=== PATIENT | male | born 1995 | race Caucasian/White ===

== ENCOUNTER 2019-08-24 02:00 | Emergency (ER) | payer BC, OTHER ==
[2019-08-24] MEDS ORDERED: Take Home: Doxycycline 100 MG Tab, 4 Tab Pack PO ONE (02:08)
[2019-08-24] MEDS ORDERED: Take Home: Codeine/Promethazine 10-6.25 MG/5 ML Syrup 5 ML, 2 Cup Pack PO ONE (02:08)
--- NOTE | 2019-08-24 05:24 | EDM.PDOC ---
ED HPI GENERAL MEDICAL PROBLEM - General Chief Complaint: Respiratory Problem Stated Complaint: Cough Time Seen by Provider: 08/24/19 02:05 Source of Information: Reports: Patient History Limitations: Reports: No Limitations - History of Present Illness INITIAL COMMENTS - FREE TEXT/NARRATIVE: Pt. presents to ER with complaints of productive cough, chest congestion, fever for the past several days. He states that he has not had any sore throat. No nausea, vomiting, or diarrhea. No rashes. Pt. states that he has been feeling poorly for at least 5 days. He missed work today. He states that he has not had his flu shot. He denies any body aches, myalgias, or arthralgias. Onset: Today Onset Date: 08/24/19 Location: Reports: Chest, Generalized Associated Symptoms: Reports: Cough, cough w sputum, Fever/Chills. Denies: Confusion, Chest Pain, Headaches, Nausea/Vomiting, Rash "Lungs" Pain Score (Numeric/FACES): 6 - Related Data Allergies Allergy/AdvReac Type Severity Reaction Status Date / Time No Known Allergies Allergy Verified 08/24/19 02:06 Home Meds: Home Meds Venlafaxine [Effexor] 150 mg PO DAILY 08/24/19 [History] Past Medical History Psychiatric History: Reports: Anxiety, Depression Social & Family History - Tobacco Use Smoking Status *Q: Former Smoker Used Tobacco, but Quit: Yes Month/Year Tobacco Last Used: Two years ago - Recreational Drug Use Recreational Drug Use: No ED ROS GENERAL - Review of Systems Review Of Systems: See Below Constitutional: Reports: Fever, Chills, Fatigue HEENT: Reports: No Symptoms Respiratory: Reports: Cough, Sputum Cardiovascular: Reports: No Symptoms Endocrine: Reports: No Symptoms GI/Abdominal: Reports: No Symptoms : Reports: No Symptoms Musculoskeletal: Reports: No Symptoms Skin: Reports: No Symptoms Neurological: Reports: No Symptoms Psychiatric: Reports: No Symptoms Hematologic/Lymphatic: Reports: No Symptoms Immunologic: Reports: No Symptoms ED EXAM, GENERAL - Physical Exam Exam: See Below Exam Limited By: No Limitations General Appearance: Alert, WD/WN, No Apparent Distress Ears: Normal External Exam, Normal Canal, Hearing Grossly Normal, Normal TMs Ear Exam: Bilateral Ear: Auricle Normal, Canal Normal, TM normal Nose: Normal Inspection, Normal Mucosa Throat/Mouth: Normal Inspection, Normal Lips, Normal Teeth, Normal Gums, Normal Oropharynx, Normal Voice, No Airway Compromise Head: Atraumatic, Normocephalic Neck: Normal Inspection, Supple, Non-Tender, Full Range of Motion Respiratory/Chest: No Respiratory Distress, Lungs Clear, Crackles, Rhonchi Cardiovascular: Normal Peripheral Pulses, Regular Rate, Rhythm, No Edema, No Gallop, No JVD, No Murmur, No Rub GI/Abdominal: Soft, Non-Tender, No Distention, No Mass (Male) Exam: Deferred Rectal (Males) Exam: Deferred Back Exam: Normal Inspection, Full Range of Motion Extremities: Normal Inspection, Normal Range of Motion, Non-Tender, No Pedal Edema, Normal Capillary Refill Neurological: Alert, Oriented, CN II-XII Intact, Normal Cognition, Normal Gait, Normal Reflexes, No Motor/Sensory Deficits Psychiatric: Normal Affect, Normal Mood Skin Exam: Warm, Dry, Intact, Pallor Lymphatic: No Adenopathy Course - Vital Signs Last Recorded V/S: Last Vital Signs Temp 36.9 C 08/24/19 02:10 Pulse 111 H 08/24/19 02:10 Resp 16 08/24/19 02:10 BP 142/89 H 08/24/19 02:10 Pulse Ox 97 08/24/19 02:10 - Orders/Labs/Meds Meds: Medications Discontinued Medications Generic Name Dose Route Start Last Admin Trade Name Hussain PRN Reason Stop Dose Admin Doxycycline Monohydrate 1 packet 08/24/19 02:08 08/24/19 02:15 Take Home: Doxycycline 100 Mg, 4 Tab Pack PO 08/24/19 02:09 1 packet ONETIME ONE Administration Promethazine HCl/Codeine 1 packet 08/24/19 02:08 08/24/19 02:15 Take Home: Codeine/Prometh 10-6.25 Mg, 2 Pack PO 08/24/19 02:09 1 packet ONETIME ONE Administration Departure - Departure Time of Disposition: 02:20 Disposition: Home, Self-Care 01 Condition: Good Clinical Impression: Bronchitis - Discharge Information Instructions: Doxycycline tablets or capsules, Codeine; Promethazine oral solution, Acute Bronchitis, Adult, Probiotics Referrals: Joshua Ramon MD [Primary Care Provider] - Forms: ED Department Discharge Additional Instructions: Doxycycline 100mg 1 twice daily for 10 days Phenergan with codeine 5 ml every 4-6 hours for cough Drink plenty of fluids tylenol and ibuprofen for fever/discomfort. Drink plenty of fluids Recheck in clinic in 10-14 days Sepsis Event Note - Evaluation Sepsis Screening Result: Possible Sepsis Risk - Focused Exam Vital Signs: Vital Signs Temp Pulse Resp BP Pulse Ox 08/24/19 02:10 36.9 C 111 H 16 142/89 H 97 Date Exam was Performed: 08/24/19 Time Exam was Performed: 05:19 - Assessment/Plan Plan: Doxycycline 100mg 1 twice daily for 10 days Phenergan with codeine 5 ml every 4-6 hours for cough Drink plenty of fluids tylenol and ibuprofen for fever/discomfort. Drink plenty of fluids Recheck in clinic in 10-14 days
== END 2019-08-24 02:20 | disposition home or self-care (01) ==
LOC: VM.ED 02:00
DX: J40 Bronchitis, not specified as acute or chronic (principal); Z87.891 Personal history of nicotine dependence; Z79.899 Other long term (current) drug therapy
CPT/HCPCS: 99283; A9270

== ENCOUNTER 2020-01-17 23:46 | Emergency (ER) | payer BC, OTHER ==
[2020-01-18] MEDS ORDERED: diphenhydrAMINE 50 MG/ML SDV IVPUSH ONE (00:11)
[2020-01-18] MEDS ORDERED: Morphine 10 MG/ML SDV IVPUSH ONE (00:12)
[2020-01-18] MEDS ORDERED: Lactated Ringers 1,000 ML IV ONE (00:12)
[2020-01-18] MEDS ORDERED: Polyethylene Glycol 3350 Powder 17 GM Packet PO ONE (00:13)
[2020-01-18] MEDS ORDERED: Ondansetron 4 MG/2 ML SDV IV ONE (00:13)
--- NOTE | 2020-01-18 00:43 | EDM.PDOC ---
ED HPI GENERAL MEDICAL PROBLEM - General Chief Complaint: Gastrointestinal Problem Stated Complaint: rectal bleeding Time Seen by Provider: 01/18/20 00:12 Source of Information: Reports: Patient History Limitations: Reports: No Limitations - History of Present Illness INITIAL COMMENTS - FREE TEXT/NARRATIVE: Patient comes emergency department today from home by ambulance with concerns of rectal bleeding. This patient on 01/12/2020 had a internal and external hemorrhoidectomy completed at [facility] in [place]. He was sent home with oral Colace and hydrocodone. He has not had a bowel movement since that time. He is currently out of his pain medication at home. He has been trying to use small amounts of laxatives yesterday and today to help with a bowel movement as he feels like he needs to go. He was sitting on the toilet tonight he was having some cramping and pressure attempting not to have a bowel movement. He noticed that he was having some dark sheree blood bleeding from his rectum. He has had increased pain in his rectum as well as his abdomen. Is had no nausea or vomiting. No fever no chills. No chest pain no shortness of breath or difficulty breathing. No weakness dizziness lightheadedness. He became quite concerned due to the pain in the rectal bleeding. He also wondered if 1 of his stitches did not come out as well. Therefore he contacted the ambulance and was brought to the emergency department. Upon arrival he is quite uncomfortable quite a bit of pain in his rectum and as well as his abdomen which is more peristaltic in nature. He is actively nauseated without vomiting. Rectal Pain Score (Numeric/FACES): 7 - Related Data Allergies Allergy/AdvReac Type Severity Reaction Status Date / Time No Known Allergies Allergy Verified 01/17/20 23:59 Home Meds: Home Meds Venlafaxine [Effexor] 150 mg PO DAILY 08/24/19 [History] Docusate Sodium [Dulcolax Stool Softener] 100 mg PO BID 01/17/20 [History] Hydrocodone/Acetaminophen [Hydrocodone-Acetamin 5-325 mg] 1 each PO Q4H PRN 01/17/20 [History] Past Medical History Gastrointestinal History: Reports: Hemorrhoids Psychiatric History: Reports: Anxiety, Depression Social & Family History - Tobacco Use Smoking Status *Q: Never Smoker ED ROS GENERAL - Review of Systems Review Of Systems: Comprehensive ROS is negative, except as noted in HPI. ED EXAM, GI/ABD - Physical Exam Exam: See Below Exam Limited By: No Limitations General Appearance: Alert, WD/WN, No Apparent Distress Respiratory/Chest: No Respiratory Distress, Lungs Clear Cardiovascular: Normal Peripheral Pulses, Regular Rate, Rhythm GI/Abdominal Exam: Normal Bowel Sounds, Soft Rectal (Males) Exam: Tenderness (There is some dried blood on the gluteal folds and small amount of clots at the anus. There is a small amount of bruising at the 9 oclock position just lateral to the anal os. THere is external sutures that are well approximated and no active bleeding. DIgital exam is difficult due to pain and discomfort with a small amount of dark red blood in the rectal vault. Initially unable to identify any stool due to discomfort. No sheree blood. ) Extremities: Normal Inspection, Normal Range of Motion Neurological: Alert, Oriented, Normal Cognition, No Motor/Sensory Deficits Psychiatric: Anxious Skin Exam: Warm, Dry, Intact, Normal Color Course - Vital Signs Last Recorded V/S: Last Vital Signs Temp 99.9 F 01/17/20 23:46 Pulse 111 H 01/17/20 23:46 Resp 18 01/17/20 23:46 BP 147/83 H 01/17/20 23:46 Pulse Ox 99 01/17/20 23:46 - Orders/Labs/Meds Orders: Active Orders 24 hr Category Date Time Status BASIC METABOLIC PANEL,BMP [CHEM] Stat Lab 01/18/20 00:11 Ordered CBC WITH AUTO DIFF [HEME] Stat Lab 01/18/20 00:11 Ordered Lactated Ringers [Ringers, Lactated] 1,000 ml Med 01/18/20 00:12 Ordered IV ONETIME Medication Orders Lactated Ringer's (Ringers, Lactated) 1,000 mls @ 999 mls/hr IV ONETIME ONE Stop: 01/18/20 01:12 Last Admin: 01/18/20 00:24 Dose: 999 mls/hr Documented by: CHRIS Meds: Medications Generic Name Dose Route Start Last Admin Trade Name Freq PRN Reason Stop Dose Admin Lactated Ringer's 1,000 mls @ 999 mls/hr 01/18/20 00:12 01/18/20 00:24 Ringers, Lactated IV 01/18/20 01:12 999 mls/hr ONETIME ONE Administration Discontinued Medications Generic Name Dose Route Start Last Admin Trade Name Hussain PRN Reason Stop Dose Admin Diphenhydramine HCl 25 mg 01/18/20 00:11 01/18/20 00:23 Benadryl IVPUSH 01/18/20 00:12 25 mg ONETIME ONE Administration Morphine Sulfate 2 mg 01/18/20 00:12 01/18/20 00:23 Morphine IVPUSH 01/18/20 00:13 2 mg ONETIME ONE Administration Ondansetron HCl 4 mg 01/18/20 00:13 01/18/20 00:22 Zofran IV 01/18/20 00:14 4 mg ONETIME ONE Administration Polyethylene Glycol 34 gm 01/18/20 00:13 01/18/20 00:32 Miralax PO 01/18/20 00:14 34 gm ONETIME ONE Administration - Re-Assessments/Exams Free Text/Narrative Re-Assessment/Exam: 01/18/20 01:34 The patient initially was given Benadryl morphine Zofran and a liter of LR. When he initially arrived he was quite uncomfortable. Shortly after he did have a bowel movement that was soft and formed that I would say is moderate size. He had much improvement of pain not only in his abdomen but also his rectum. He kind of has a dull ache in his rectum now which is much improved in his arrival. There was some topical lidocaine placed on the anus as well. She feels much better and we will discharge him home. There is no active bleeding following the bowel movement. I will add MiraLAX to his bowel regimen as well and he can continue the Colace. I would like him to contact his surgeon's office tomorrow for update. He is comfortable with this plan and his questions are answered. Departure - Departure Time of Disposition: 01:27 Disposition: Home, Self-Care 01 Clinical Impression: Status post hemorrhoidectomy, Rectal bleeding - Discharge Information Instructions: Rectal Bleeding, [id number] Referrals: PCP,Unobtain [Primary Care Provider] - Forms: ED Department Discharge Additional Instructions: Continue with the previous therapies. Add Miralax, 1 capful daily with a large glass of water. Make sure and increase fluid intake. Should be urinating every 2 hours. Again try not to bear down when having a bowel movement as previous. Return to the ED if new or worsening symptoms. Contact your surgeons office tomorrow by phone for update of changes. Sepsis Event Note (ED) - Evaluation Sepsis Screening Result: No Definite Risk - Focused Exam Vital Signs: Vital Signs Temp Pulse Resp BP Pulse Ox 01/17/20 23:46 99.9 F 111 H 18 147/83 H 99 - My Orders Last 24 Hours: My Active Orders 01/18/20 00:11 BASIC METABOLIC PANEL,BMP [CHEM] Stat CBC WITH AUTO DIFF [HEME] Stat 01/18/20 00:12 Lactated Ringers [Ringers, Lactated] 1,000 ml IV ONETIME - Assessment/Plan Last 24 Hours: My Active Orders 01/18/20 00:11 BASIC METABOLIC PANEL,BMP [CHEM] Stat CBC WITH AUTO DIFF [HEME] Stat 01/18/20 00:12 Lactated Ringers [Ringers, Lactated] 1,000 ml IV ONETIME Assessment:: S/P Hemorrhoidectomy internal and external Plan: Continue with the previous therapies. Add Miralax, 1 capful daily with a large glass of water. Make sure and increase fluid intake. Should be urinating every 2 hours. Again try not to bear down when having a bowel movement as previous. Return to the ED if new or worsening symptoms. Contact your surgeons office tomorrow by phone for update of changes.
[2020-01-18] MEDS ORDERED: Lidocaine 2% Jelly 5 ML Tube MUCMEM ONE (00:56)
[2020-01-18 00:58] LABS: CHLORIDE,CL 103 mmol/L (98-107); SODIUM,NA 139 mmol/L (136-145)
[2020-01-18] MEDS ORDERED: Morphine 4 MG/ML Syringe IVPUSH ONE (00:59)
[2020-01-18 01:00] LABS: ANION GAP 8.5 mmol/L (10-20)
[2020-01-18] MEDS ORDERED: Lidocaine 2% Jelly 5 ML Tube ONE (01:04)
== END 2020-01-18 01:35 | disposition home or self-care (01) ==
LOC: VM.ED 23:46
DX: K62.5 Hemorrhage of anus and rectum (principal); F41.9 Anxiety disorder, unspecified; F32.9 Major depressive disorder, single episode, unspecified; Z90.49 Acquired absence of other specified parts of digestive tract; Z79.899 Other long term (current) drug therapy
CPT/HCPCS: 36415; 80048; 85025; 96374; 96375; 96376; 99284-25; A9270-GY; J1200; J2270; J2405; J7120

== ENCOUNTER 2021-06-01 15:12 | Emergency (ER) | payer BC ==
[2021-06-01] MEDS ORDERED: Ondansetron 4 MG/2 ML SDV IVPUSH ONE (15:42)
[2021-06-01] MEDS ORDERED: fentaNYL 100 MCG/2 ML SDV IVPUSH ONE (15:42)
[2021-06-01] MEDS ORDERED: Lactated Ringers 1,000 ML IV ONE (15:42)
[2021-06-01 15:51] LABS: CHLORIDE,CL 103 mmol/L (98-107); SODIUM,NA 141 mmol/L (136-145)
--- NOTE | 2021-06-01 15:52 | EDM.PDOC ---
ED HPI GENERAL MEDICAL PROBLEM - General Chief Complaint: Abdominal Pain Stated Complaint: STOMACH PAIN Time Seen by Provider: 06/01/21 15:35 Source of Information: Reports: Patient - History of Present Illness INITIAL COMMENTS - FREE TEXT/NARRATIVE: Andrea is a 25 y/o male who presents to the ER with RLQ abdominal pain that he reports started 2-3 days ago, He was switched from Venlafaxine to Fluoxetine on Friday by his PCP and he thought the GI sx were from that, but Friday it got worse. He has been nauseated and vomited over the last 2 days. Has also has some diarrhea. Low grade fever present too. He was at the [facility], but was sent here to be seen. - Related Data Allergies Allergy/AdvReac Type Severity Reaction Status Date / Time No Known Allergies Allergy Verified 01/17/20 23:59 Home Meds: Home Meds FLUoxetine HCl [Fluoxetine HCl] 20 mg PO DAILY 06/01/21 [History] Past Medical History Gastrointestinal History: Reports: Hemorrhoids Psychiatric History: Reports: Anxiety, Depression Review of Systems - Review of Systems Review Of Systems: See Below Constitutional: Reports: Fever Eyes: Reports: No Symptoms Ears: Reports: No Symptoms Nose: Reports: No Symptoms Mouth/Throat: Reports: No Symptoms Respiratory: Reports: No Symptoms Cardiovascular: Reports: No Symptoms GI/Abdominal: Reports: Abdominal Pain, Decreased Appetite, Diarrhea, Nausea, Vomiting Genitourinary: Reports: No Symptoms Musculoskeletal: Reports: No Symptoms Skin: Reports: No Symptoms Neurological: Reports: No Symptoms Psychiatric: Reports: No Symptoms ED EXAM, GENERAL - Physical Exam Exam: See Below General Appearance: Alert, WD/WN, No Apparent Distress (Adult male, lyig quietly on ER cart.) Ears: Normal External Exam, Normal Canal, Hearing Grossly Normal, Normal TMs Nose: Normal Inspection, Normal Mucosa Throat/Mouth: Normal Inspection, Normal Lips, Normal Voice Head: Atraumatic, Normocephalic Neck: Supple Respiratory/Chest: No Respiratory Distress, Lungs Clear Cardiovascular: Normal Peripheral Pulses, Regular Rate, Rhythm, No Murmur GI/Abdominal: Normal Bowel Sounds, Soft, No Distention, Rebound (RLQ/RUQ), Tender (Male) Exam: Deferred Rectal (Males) Exam: Deferred Back Exam: Normal Inspection Extremities: No Pedal Edema Neurological: Alert, Oriented, CN II-XII Intact, No Motor/Sensory Deficits Psychiatric: Normal Mood Skin Exam: Warm, Dry, Intact, Normal Color Course - Vital Signs Text/Narrative:: 1535 The patient was seen by the [employer]ING ADJUSTER. Labs ordered. He was given a liter of LR, Fentanyl 100mcg IVP, and Zofran 4mg IVP. 1620 Labs reviewed. CBC neg, CMP BUN=19, COVID=neg, UA=blood trace intact. Will order CT Abd/Pelvis WO to rule out renal calculi as cause. Doubt appendicitis at this time. 1715 CT reviewed, negative. Results discussed with the patient and his family. Still not feeling all that well. Still having some pain and nausea. Reglan 10mg IVP ordered. 1800 Will send him home to rest. Ondanestron sent with pt from ER. Differential favors viral illness. Written instructions were given and he left the ER in stable condition with family. Last Recorded V/S: Last Vital Signs Temp 37.7 C 06/01/21 15:34 Pulse 84 06/01/21 15:34 Resp 17 06/01/21 15:34 BP 164/91 H 06/01/21 15:34 Pulse Ox 99 06/01/21 15:34 - Orders/Labs/Meds Orders: Active Orders 24 hr Category Date Time Status Nothing per Oral Now Diet [DIET] Diet 06/01/21 Dinner Ordered Labs: Laboratory Tests 06/01/21 06/01/21 06/01/21 Range/Units 15:18 15:18 15:18 WBC 7.9 (4.0-10.0) x10^3/uL RBC 4.92 (4.5-6.0) x10^6/uL Hgb 15.1 (14.0-18.0) g/dL Hct 42.1 (40.0-52.0) % MCV 85.6 (78.0-93.0) fL MCH 30.7 (26.0-32.0) pg MCHC 35.9 (32.0-36.0) g/dL RDW Coeff of Mario 12.4 (10.0-15.0) % Plt Count 224 (130-400) x10^3/uL Immature Gran % (Auto) 0.40 (0.00-0.43) % Neut % (Auto) 53.8 (50.0-80.0) % Lymph % (Auto) 34.1 (25.0-50.0) % Radford % (Auto) 10.5 (2.0-11.0) % Eos % (Auto) 0.9 (0.0-4.0) % Baso % (Auto) 0.3 (0.2-1.2) % Neut # (Auto) 4.3 (1.8-7.7) x10^3/uL Lymph # (Auto) 2.7 (1.0-4.8) x10^3/uL Radford # (Auto) 0.8 (0.0-0.8) x10^3/uL Eos # (Auto) 0.1 (0.0-0.5) x10^3/uL Baso # (Auto) 0.0 (0.0-0.2) x10^3/uL Immature Gran # (Auto) 0.03 (0.00-0.07) x10^3/uL Sodium 141 (136-145) mmol/L Potassium 4.0 (3.5-5.1) mmol/L Chloride 103 (98-107) mmol/L Carbon Dioxide 27 (21-32) mmol/L Anion Gap 15.0 (5-15) mmol/L BUN 19 H (7-18) mg/dL Creatinine 0.9 (0.70-1.30) mg/dL Est Cr Clr Drug Dosing 123.29 mL/min Estimated GFR (MDRD) > 60 Glucose 97 (70-99) mg/dL Calcium 9.2 (8.5-10.1) mg/dL Corrected Calcium 9.0 (8.5-10.1) mg/dL Total Bilirubin 0.7 (0.2-1.0) mg/dL AST 23 (15-37) U/L ALT 40 (16-63) U/L Alkaline Phosphatase 98 (46-116) U/L C-Reactive Protein (<=0.9) mg/dL Total Protein 7.7 (6.4-8.2) g/dL Albumin 4.2 (3.4-5.0) g/dL Globulin 3.5 Albumin/Globulin Ratio 1.20 Amylase 30 (25-115) U/L Urine Color (YELLOW) Urine Appearance (CLEAR) Urine pH (5.0-8.0) Ur Specific Parnell Urine Protein (NEGATIVE) mg/dL Urine Glucose (UA) (NEGATIVE) mg/dL Urine Ketones (NEGATIVE) mg/dL Urine Occult Blood (NEGATIVE) Urine Nitrite (NEGATIVE) Urine Bilirubin (NEGATIVE) Urine Urobilinogen (0.2) EU/dL Ur Leukocyte Esterase (NEGATIVE) Urine RBC (NOT SEEN) /HPF Urine WBC (NOT SEEN) /HPF Ur Squamous Epith Cells (NOT SEEN) /HPF Urine Bacteria (NOT SEEN) /HPF Urine Mucus (NOT SEEN) /LPF SARS CoV-2 RNA Rapid DIVINA Negative (NEGATIVE) 06/01/21 06/01/21 Range/Units 15:18 16:03 WBC (4.0-10.0) x10^3/uL RBC (4.5-6.0) x10^6/uL Hgb (14.0-18.0) g/dL Hct (40.0-52.0) % MCV (78.0-93.0) fL MCH (26.0-32.0) pg MCHC (32.0-36.0) g/dL RDW Coeff of Mario (10.0-15.0) % Plt Count (130-400) x10^3/uL Immature Gran % (Auto) (0.00-0.43) % Neut % (Auto) (50.0-80.0) % Lymph % (Auto) (25.0-50.0) % Radford % (Auto) (2.0-11.0) % Eos % (Auto) (0.0-4.0) % Baso % (Auto) (0.2-1.2) % Neut # (Auto) (1.8-7.7) x10^3/uL Lymph # (Auto) (1.0-4.8) x10^3/uL Radford # (Auto) (0.0-0.8) x10^3/uL Eos # (Auto) (0.0-0.5) x10^3/uL Baso # (Auto) (0.0-0.2) x10^3/uL Immature Gran # (Auto) (0.00-0.07) x10^3/uL Sodium (136-145) mmol/L Potassium (3.5-5.1) mmol/L Chloride (98-107) mmol/L Carbon Dioxide (21-32) mmol/L Anion Gap (5-15) mmol/L BUN (7-18) mg/dL Creatinine (0.70-1.30) mg/dL Est Cr Clr Drug Dosing mL/min Estimated GFR (MDRD) Glucose (70-99) mg/dL Calcium (8.5-10.1) mg/dL Corrected Calcium (8.5-10.1) mg/dL Total Bilirubin (0.2-1.0) mg/dL AST (15-37) U/L ALT (16-63) U/L Alkaline Phosphatase (46-116) U/L C-Reactive Protein 1.4 H (<=0.9) mg/dL Total Protein (6.4-8.2) g/dL Albumin (3.4-5.0) g/dL Globulin Albumin/Globulin Ratio Amylase (25-115) U/L Urine Color Yellow (YELLOW) Urine Appearance Clear (CLEAR) Urine pH 7.0 (5.0-8.0) Ur Specific Parnell 1.025 Urine Protein Negative (NEGATIVE) mg/dL Urine Glucose (UA) Negative (NEGATIVE) mg/dL Urine Ketones Negative (NEGATIVE) mg/dL Urine Occult Blood Trace-intact H (NEGATIVE) Urine Nitrite Negative (NEGATIVE) Urine Bilirubin Negative (NEGATIVE) Urine Urobilinogen 1.0 (0.2) EU/dL Ur Leukocyte Esterase Negative (NEGATIVE) Urine RBC 0-5 (NOT SEEN) /HPF Urine WBC 0-5 (NOT SEEN) /HPF Ur Squamous Epith Cells Not seen (NOT SEEN) /HPF Urine Bacteria Rare (NOT SEEN) /HPF Urine Mucus Few H (NOT SEEN) /LPF SARS CoV-2 RNA Rapid DIVINA (NEGATIVE) Meds: Medications Discontinued Medications Generic Name Dose Route Start Last Admin Trade Name Freq PRN Reason Stop Dose Admin Fentanyl 100 mcg 06/01/21 15:42 06/01/21 16:44 Fentanyl 100 Mcg/2 Ml Sdv IVPUSH 06/01/21 15:43 100 mcg ONETIME ONE Administration Lactated Ringer's 1,000 mls @ 999 mls/hr 06/01/21 15:42 06/01/21 16:00 Ringers, Lactated IV 06/01/21 16:42 999 mls/hr ONETIME ONE Administration Metoclopramide HCl 10 mg 06/01/21 17:32 Metoclopramide 10 Mg/2 Ml Sdv IM 06/01/21 17:33 ONETIME ONE Ondansetron HCl 4 mg 06/01/21 15:42 06/01/21 16:43 Ondansetron 4 Mg/2 Ml Sdv IVPUSH 06/01/21 15:43 4 mg ONETIME ONE Administration Departure - Departure Time of Disposition: 17:55 Disposition: Home, Self-Care 01 Condition: Good Clinical Impression: Abdominal pain Qualifiers: Abdominal location: right lower quadrant Qualified Code(s): R10.31 - Right lower quadrant pain Diarrhea Qualifiers: Diarrhea type: unspecified type Qualified Code(s): R19.7 - Diarrhea, unspecified - Discharge Information Instructions: Diarrhea, Adult, Abdominal Pain, Adult Referrals: Angelica Mclean [employer] [Primary Care Provider] - Forms: ED Department Discharge Additional Instructions: -Ondanestron ODT 4mg oral every 4 hours as needed for nausea #4(ER Rx) -Rest -Diet as tolerated -Over the counter meds as helpful -Monitor for further symptoms and return to the ER for further labs and diagnostics. -If your symptoms are not improving in the next 48 hours, follow up with your PCP for recheck. Sepsis Event Note (ED) - Evaluation Sepsis Screening Result: No Definite Risk - Focused Exam Vital Signs: Vital Signs Temp Pulse Resp BP Pulse Ox 06/01/21 15:34 37.7 C 84 17 164/91 H 99 - Problem List & Annotations (1) Abdominal pain SNOMED Code(s): 71341249 Code(s): R10.9 - UNSPECIFIED ABDOMINAL PAIN Status: Acute Current Visit: Yes Annotation/Comment:: Labs neg, CT neg. Sent home from ER with Ondanestron. Monitor for further sx. Qualifiers: Abdominal location: right lower quadrant Qualified Code(s): R10.31 - Right lower quadrant pain (2) Diarrhea SNOMED Code(s): 45611171 Code(s): R19.7 - DIARRHEA, UNSPECIFIED Status: Acute Current Visit: Yes Annotation/Comment:: Monitor sx and follow up with PCP if sx persist. Qualifiers: Diarrhea type: unspecified type Qualified Code(s): R19.7 - Diarrhea, unspecified - Problem List Review Problem List Initiated/Reviewed/Updated: Yes - My Orders Last 24 Hours: My Active Orders 06/01/21 Dinner Nothing per Oral Now Diet [DIET] - Assessment/Plan Last 24 Hours: My Active Orders 06/01/21 Dinner Nothing per Oral Now Diet [DIET] Plan: As above
--- NOTE | 2021-06-01 17:10 | CT ---
[id number] CT/CT Abdomen Pelvis WO IV EXAM: CT Abdomen Pelvis WO IV CLINICAL DATA: RIGHT LOWER QUADRANT/RIGHT UPPER QUADRANT ABDOMEN PAIN COMPARISON STUDY: None. FINDINGS: Lung bases are clear. Liver, spleen, gallbladder, pancreas, adrenal glands, and kidneys are unremarkable. No bowel obstruction or inflammation. The appendix is visualized and appears normal. No lymphadenopathy, free fluid, or pneumoperitoneum. Circumferential wall thickening of the urinary bladder. No fracture or osseous lesion. IMPRESSION: 1. The appendix is visualized and appears normal. 2. Circumferential wall thickening of the urinary bladder. Findings can BE seen with acute cystitis. Correlation with urinalysis is recommended. Ye Schrader DO 06/01/21 [id number] Thank you for allowing us to participate in the care of your patient.
[2021-06-01] MEDS ORDERED: Metoclopramide 10 MG/2 ML SDV IM ONE (17:32)
[2021-06-01] MEDS ORDERED: Take Home: Ondansetron 4 MG Tab.DIS, 2 Tab Pack PO ONE (17:57)
[2021-06-01] MEDS ORDERED: Metoclopramide 10 MG/2 ML SDV IVPUSH ONE (18:11)
== END 2021-06-01 18:11 | disposition home or self-care (01) ==
LOC: VM.ED 15:12
DX: R10.31 Right lower quadrant pain (principal); R19.7 Diarrhea, unspecified; Z20.822 Contact with and (suspected) exposure to COVID-19
CPT/HCPCS: 74176; 80053; 81001; 82150; 85025; 86140; 96374; 96375; 99284-25; A9270-GY; J2405; J3010; J7120; U0002

== ENCOUNTER 2022-10-23 21:00 | Emergency (ER) | payer BC, OTHER ==
[2022-10-23 21:58] LABS: ANION GAP 15.6 mmol/L (5-15); CHLORIDE,CL 102 mmol/L (98-107); ESTIMATED GFR 119 mL/min (>=60); SODIUM,NA 140 mmol/L (136-145)
[2022-10-23] MEDS: Ketorolac 30 MG/ML SDV IM ONE (22:30)
== END 2022-10-23 22:50 | disposition home or self-care (01) ==
LOC: VM.ED 21:00
DX: R07.89 Other chest pain (principal)
CPT/HCPCS: 36415; 80053; 82550; 83615; 84484; 85025; 86140; 93005; 93010; 96372; 99284; 99285; J1885

== ENCOUNTER 2023-12-31 19:21 | Emergency (ER) | payer OTHER ==
[2023-12-31] MEDS: Acetaminophen/HYDROcodone 325-5 MG Tab PO ONE (19:36)
[2023-12-31] MEDS: Ondansetron 4 MG Tab.DIS PO ONE (19:36)
== END 2023-12-31 20:28 | disposition home or self-care (01) ==
LOC: VM.ED 19:21
DX: S09.90XA Unspecified injury of head, initial encounter (principal); Z79.899 Other long term (current) drug therapy; R55 Syncope and collapse; W18.2XXA Fall in (into) shower or empty bathtub, initial encounter
CPT/HCPCS: 99283; A9270-GY